=== PATIENT | female | born 1965 | race Two or more races ===

== ENCOUNTER 2023-12-07 18:30 | Emergency (ER) | payer OTHER ==
[~2023-12-07] VITALS: Ht 157.5 cm; Wt 83.5 kg
[2023-12-07] MEDS: MORPHINE SULFATE INJ 2 MG/ML DISP.SYRIN IM ONE (20:23)
[2023-12-07] MEDS ORDERED: MORPHINE SULFATE INJ 2 MG/ML DISP.SYRIN ONE (20:23)
[2023-12-07] MEDS ORDERED: ACETAMINOPHEN ES 500 MG TABLET ONE (22:07)
[2023-12-07] MEDS: ACETAMINOPHEN ES 500 MG TABLET PO ONE (22:08)
[2023-12-07] MEDS ORDERED: ACET-2605 PO (22:41)
[2023-12-07] MEDS ORDERED: IBUP-1955 PO (22:41)
[2023-12-07] MEDS ORDERED: HYDR-4209 PO (22:41)
[2023-12-07 23:44] VITALS: BP 141/89; TEMP 98.5; O2SAT 98
== END 2023-12-07 23:44 | disposition home or self-care (01) ==
LOC: ER 18:33
DX: S22.41XA Multiple fractures of ribs, right side, initial encounter for closed fracture (principal); M25.562 Pain in left knee; M79.661 Pain in right lower leg; V43.52XA Car driver injured in collision with other type car in traffic accident, initial encounter; Y93.89 Activity, other specified; Y92.488 Other paved roadways as the place of occurrence of the external cause; Y99.8 Other external cause status
CPT/HCPCS: 99285; 71250; 96372; 71111; 74176; J2270